=== PATIENT | female | born 1995 | race Caucasian/White ===

== ENCOUNTER 2022-10-20 07:54 | Inpatient (IN) ==
[2022-10-20] MEDS ORDERED: LACTATED RINGER'S 1,000 ML IV PRN (07:56)
[2022-10-20] MEDS ORDERED: SODIUM CHLORIDE 0.9% 250 ML IV PRN (07:56)
[2022-10-20] MEDS ORDERED: OXYTOCIN 30 UNITS/500 ML BAG IV PRN ×2 (07:56→08:54)
[2022-10-20] MEDS ORDERED: LIDOCAINE 1% LOCAL 20 ML VIAL INFIL PRN (07:56)
--- NOTE | 2022-10-20 08:00 | History & Physical Report ---
Date of Service October 20, 2022 Assessment & Plan (1) Encounter for supervision of normal in multigravida: Plan: Admit for labor. Labs, EFM/toco. IV access. Blood type/cross 2u d/t h/o hemorrhage in prior deliveries. GBS positive, however d/t labor progression will likely not have time for this. Glucose check on admission d/t GDM. History of Present Illness Chief Complaint: labor Primary Care Provider: NO PCP 26yo @ 39 0/, arrived to L&D by ambulance in active labor. PPH x 2--first delivery no treatment, second delivery--d&c for placenta and blood transfusion has not been covid vaccinated GDM-Unable to complete 2hr GTT *Begin monthly Growth US's @24wks GBS Positive *Treat in Labor Allergies Allergy/AdvReac Type Severity Reaction Status Date / Time Tylenol with codeine Allergy Hives Uncoded 10/16/22 13:03 Home Medications Medication Instructions Recorded Confirmed Type prenat.vits,sang,bdw-iofe-dpfmn 1 tab PO DAILY 03/25/22 10/16/22 History sertraline [Zoloft] PO 03/25/22 10/16/22 History ondansetron HCl 4 mg tablet See Rx Instructions .Route 10/18/22 Rx .COMPLEX #20 tabs Patient History Medical History (Updated 09/24/22 @ 11:54 by ROSA Cruz) Patient denies significant medical history Surgical History (Updated 03/25/22 @ 11:06 by Daysi Stauffer) History of gynecologic surgery hymenectomy Family History (Updated 03/25/22 @ 10:55 by Daysi Stauffer) Grandmother (Paternal) Colorectal cancer Mother Heart disease Denies family history of Ovarian cancer Breast cancer Social History (Updated 03/25/22 @ 10:56 by Daysi Stauffer) Smoking Status: Never smoker Do You Dip or Chew Tobacco: No; marital status: Single marital status details: walker Abraham (37) [phone] Current Living Situation: Family and Significant Other Current Living Situation Comment: lives with fob, 2 children, dog current occupational status: unemployed Review of Systems All systems reviewed & are unremarkable except as noted in HPI & below Physical Exam Physical Exam: FHT Cat 1 [place] Q 2 SVE 9/100/+1 on arrival, bulging membranes Constitutional: WD/WN, vitals as above Respiratory: normal respiratory effort, lungs clear to auscultation no respiratory distress Cardiovascular: Rate/Rhythm: regular rate and regular rhythm Gastrointestinal (Abdomen): Inspection/Auscultation: abdomen normal to inspection Percussion/Palpation: abdomen soft; abdomen nontender Gravid. No s/s chorio or abruption. Skin: no rashes, warm and dry Psychiatric: A+Ox3, euthymic affect Coding Level of Care Code None Diagnoses Encounter for supervision of normal in multigravida Z34.80
[2022-10-20] MEDS ORDERED: PENICILLIN G POTASSIUM 6 MU in DEXTROSE 5% 250 ML IV STA (08:08)
[2022-10-20] MEDS ORDERED: KETOROLAC 30 MG/ML VIAL ONE (08:21)
[2022-10-20] MEDS ORDERED: METHYLERGONOVINE MALEATE 0.2 MG/ML AMP IM PRN (08:29)
[2022-10-20 08:33] LABS: Hematocrit (blood only) 36.4 % (37.0-47.0); Hemoglobin 13.2 g/dl (12.0-16.0); Mean Corpuscular Hemoglobin 31.4 pg (25.0-34.0); Mean Corpuscular Hgb Conc 36.3 g/dL (32.0-36.0); Mean Corpuscular Volume 86.5 fL (80.0-100.0); Mean Platelet Volume 10.2 fL (9.4-12.4); Platelet Count 305 K/uL (130-400); Red Blood Count 4.21 M/uL (4.20-5.40); White Blood Count 10.98 K/ul (4.8-10.8)
--- NOTE | 2022-10-20 08:33 | Delivery Summary ---
Vaginal Delivery Summary Date of Service October 20, 2022 Vaginal Delivery Summary [facility] Vaginal Delivery Summary: Pre-delivery diagnoses: 26yo @ 39 02/16, spontaneous labor, GDMA1, GBS+, h/o hemorrhage Post-delivery diagnoses: same Procedure: spontaneous vaginal delivery Surgeon: Arelis Majano DO Complications: none Findings: Viable female . Apgars: 8/9. Weight pending, please see nursery records. Estimated blood loss: 300ml Description of delivery: The patient arrived by EMS in active labor, was 9cm on arrival with bulging membranes, AROM performed for clear fluid and she and quickly progressed to complete without anesthesia. She then began to push. She spontaneously vaginally delivered a viable from the cephalic presentation. The head delivered in YIFAN position. The anterior shoulder delivered, followed by the posterior shoulder, followed by the body. No nuchal cord. The baby was placed on mother's abdomen and a spontaneous cry was heard. Delayed cord clamping was employed, and the cord was doubly clamped and cut. Cord blood was obtained. The placenta was delivered spontaneously intact with a 3-vessel cord. The uterus and vagina were swept of clots and debris. IV pitocin was given. The uterus became firm. The cervix, vagina, and perineum were inspected and no lacerations were noted. Excellent hemostasis was observed. The patient was given 1 dose of toradol and a sweep of uterus was performed - no obvious retained placenta. 1 dose methergine given d/t her history of hemorrhage. Excellent hemostasis at conclusion of delivery. The mother and baby are recovering in stable and good condition in the room. Sponge and instrument counts were correct x 2. Arelis Majano DO [facility] Vaginal Delivery Charge Vaginal Delivery Codes: 24681 global code for the antepartum, delivery, and post- Delivery Type Details: [facility]
[2022-10-20] MEDS ORDERED: ACETAMINOPHEN 325 MG TAB PO PRN (08:54)
[2022-10-20] MEDS ORDERED: HYDROCORTISONE ACETATE 25 MG SUPP PR PRN (08:54)
[2022-10-20] MEDS ORDERED: oxyCODONE/ACETAMINOPHEN 5mg/325mg TAB PO PRN (08:54)
[2022-10-20] MEDS ORDERED: bisacodyL 10 MG SUPP PR PRN (08:54)
[2022-10-20] MEDS ORDERED: BENZOCAINE 20% SPRY 85 APPLN/85 GM CAN EXT PRN (08:54)
[2022-10-20] MEDS ORDERED: DIPHTHERIA/TETANUS/PERTUSSIS Vaccine (Tdap, Age 7+yrs) 0.5mL SYR/VL IM ONE (08:54)
[2022-10-20] MEDS ORDERED: OXYTOCIN 30 UNITS/500ML NSS IV ONE (08:56)
[2022-10-20] MEDS ORDERED: PENICILLIN G POTASSIUM 3 MU in DEXTROSE 5% 100 ML IV PRN (12:00)
[2022-10-20] MEDS: IBUPROFEN 600 MG TAB PO PRN ×2 (13:18→18:18)
[2022-10-20] MEDS: DOCUSATE SODIUM 100 MG CAP PO SCH (21:10)
[2022-10-21] MEDS: IBUPROFEN 600 MG TAB PO PRN ×4 (00:01→15:36)
--- NOTE | 2022-10-21 03:21 | Obstetrical Progress Note ---
Date of Service <Erik Tobar DO - Last Filed: 10/21/22 06:16> October 21, 2022 Assessment & Plan <Erik Tobar - Last Filed: 10/21/22 06:16> (1) (spontaneous vaginal delivery): Plan post day 1 s/p Vital signs reviewed and WNL Pt feels well today, eating, voiding, and ambulating well Pain well controlled with Motrin Routine post care - OOB, ambulation, diet progression as tolerated After discharge, will have 6 week follow-up with Dr. Majano. <Arelis Majano, DO - Last Filed: 10/21/22 08:48> (1) (spontaneous vaginal delivery): Subjective <Erik Tobar, - Last Filed: 10/21/22 06:16> Ambulation: ambulating normally Voiding: no voiding problems Passing Gas:: Yes Diet Tolerance:: regular diet Lochia:: Moderate Feeding Type:: breast feeding Pain well controlled with Motrin Review of Systems -Denies fever or chills -Denies dyspnea, chest pain, or palpitations -Denies breast pain -Denies dysuria -Denies headache or changes in vision Physical Exam <Erik Tobar DO - Last Filed: 10/21/22 06:16> General: Alert and oriented. No acute distress Cardiac: Regular rate and rhythm, no murmurs appreciated Respiratory: Lungs clear to auscultation bilaterally, No increased work of breathing Abdominal: Soft, non-tender, non-distended. Bowel sounds present. Uterus: Uterine fundus firm, palpable below umbilicus Extremities: No lower extremity edema, calves non-tender bilaterally Results & Data <Erik Tobar DO - Last Filed: 10/21/22 06:16> Vital Signs (Past 12 Hours) Vital Signs Temp Pulse Resp BP Pulse Ox O2 Del Method 10/20/22 23:40 36.4 C L 76 20 134/88 98 Room Air 10/20/22 21:10 36.3 C L 69 18 132/82 99 Room Air 10/20/22 16:10 36.6 C 73 16 125/83 Room Air <Arelis Majano, DO - Last Filed: 10/21/22 08:48> Co-Signing Physician Notes Resident Physician Supervision Note: I was present with Dr. Tobar during the history and exam. I discussed the case with the resident and agree with the findings and plan as documented in the note. Any exceptions or clarifications are listed here: PPD#1 doing well. Routine care - plans for [facility] tomorrow. Documented By: Arelis Majano DO Resident Activity Tracking <Erik Tobar DO - Last Filed: 10/21/22 06:16> Resident Involvement: Resident Care Provided Care Provided: OB Delivery
[2022-10-21 06:28] LABS: Hematocrit (blood only) 32.4 % (37.0-47.0); Hemoglobin 11.2 g/dl (12.0-16.0)
[2022-10-21] MEDS: PRENATAL VITAMIN 1 TAB PO SCH (08:10)
[2022-10-21] MEDS: DOCUSATE SODIUM 100 MG CAP PO SCH ×2 (08:10→22:40)
[2022-10-21] MEDS ORDERED: bisacodyL 5 MG TABEC PO SCH (20:00)
--- NOTE | 2022-10-22 05:24 | Obstetrical Progress Note ---
Date of Service <Erik Tobar DO - Last Filed: 10/22/22 05:24> October 22, 2022 Assessment & Plan <Erik Tobar DO - Last Filed: 10/22/22 05:24> (1) (spontaneous vaginal delivery): Plan post day 2 s/p Vital signs reviewed and WNL Pt feels well today, eating, voiding, and ambulating well Pain well controlled with Motrin Routine post care - OOB, ambulation, diet progression as tolerated After discharge, will have 6 week follow-up with Dr. Majano. <Lina Olivo MD - Last Filed: 10/22/22 08:47> (1) (spontaneous vaginal delivery): Subjective <Erik Tobar - Last Filed: 10/22/22 05:24> Ambulation: ambulating normally Voiding: no voiding problems Passing Gas:: Yes Diet Tolerance:: regular diet Lochia:: Small Feeding Type:: breast feeding Pain well controlled with Motrin Review of Systems -Denies fever or chills -Denies dyspnea, chest pain, or palpitations -Denies breast pain -Denies dysuria -Denies headache or changes in vision Physical Exam <Erik Tobar - Last Filed: 10/22/22 05:24> General: Alert and oriented. No acute distress Cardiac: Regular rate and rhythm, no murmurs appreciated Respiratory: Lungs clear to auscultation bilaterally, No increased work of breathing Abdominal: Soft, non-tender, non-distended. Bowel sounds present. Uterus: Uterine fundus firm, palpable below umbilicus Extremities: No lower extremity edema, calves non-tender bilaterally Results & Data <Erik Tobar - Last Filed: 10/22/22 05:24> Vital Signs (Past 12 Hours) Vital Signs Temp Pulse Resp BP O2 Del Method 10/21/22 23:45 36.5 C 75 16 129/88 Room Air 10/21/22 20:45 120/81 10/21/22 19:45 144/79 H <Lina Olivo MD - Last Filed: 10/22/22 08:47> Co-Signing Physician Notes Resident Physician Supervision Note: I interviewed and examined the patient. Discussed with Dr. Tobar and agree with findings and plan as documented in the note. Any exceptions or clarifications are listed here: PP2 s/p , doing well. VSS, exam benign and wnl. Stable for dc home today. Does have hx PPD and was on zoloft before but has nto est w/ pcp here, will start 25mg and referral to pcp Documented By: Lina Olivo MD Resident Activity Tracking <Erik Tobar DO - Last Filed: 10/22/22 05:24> Resident Involvement: Resident Care Provided Care Provided: OB Delivery
[2022-10-22] MEDS: PRENATAL VITAMIN 1 TAB PO SCH (07:41)
[2022-10-22] MEDS: IBUPROFEN 600 MG TAB PO PRN (07:41)
[2022-10-22] MEDS: DOCUSATE SODIUM 100 MG CAP PO SCH (07:41)
== END 2022-10-22 11:50 | disposition home or self-care (01) | DRG 807 ==
LOC: OPB 07:54 → 4S1 07:56 → 4E2 11:26